=== PATIENT | female | born 1945 | race Caucasian/White ===

== ENCOUNTER 2022-11-15 05:03 | Day surgery (SDC) | payer OTHER, MEDICARE ==
[2022-11-13 10:16] VITALS: BMI 24.0
[2022-11-15 11:33] VITALS: BP 119/62; PULSE 53; RESP 18; TEMP 97.1
== END 2022-11-15 11:41 | disposition home or self-care (01) ==
LOC: JASU-ENDO 05:03
PROVIDERS: ATTEND Internal Medicine Gastroenterology
PROC: 0DJD8ZZ Inspection of Lower Intestinal Tract, Via Natural or Artificial Opening Endoscopic (ICD-10-PCS; principal; 2022-11-15 10:00)
DX: Z12.11 Encounter for screening for malignant neoplasm of colon (principal); Z86.010 Personal history of colon polyps